=== PATIENT | female | born 1975 | race Caucasian/White ===

== ENCOUNTER 2020-04-07 11:31 | Observation (INO) ==
[2020-04-07] MEDS ORDERED: ONDANSETRON INJ 2 MG/ML 2 ML VIAL IV STA (12:09)
[2020-04-07] MEDS ORDERED: ACETAMINOPHEN 1000 MG/100 ML IV IV STA (12:09)
[2020-04-07] MEDS ORDERED: PROMETHAZINE 6.25 MG/50.25 ML BAG IV STA (12:09)
[2020-04-07] MEDS ORDERED: KETOROLAC TROMETHAMINE 15 MG/ML VIAL IV STA (12:09)
[2020-04-07] MEDS ORDERED: cefTRIAXone SODIUM 1,000 MG/50 ML BAG IV STA (12:09)
[2020-04-07] MEDS ORDERED: SODIUM CHLORIDE 0.9% 1000ML 1,000 ML IV SCH (12:15)
--- NOTE | 2020-04-07 12:25 | Emergency Department Note ---
Impression & Plan Pyelonephritis, Vomiting, Acute dehydration, COVID-19 ED Provider Note NAME: LANETTE MENDOZA AGE: 44 SEX: F : 1975 ARRIVES VIA: Walk-In INFORMANT: [Patient] ED PROVIDER(S): [Paulie Lisa MD] CHIEF COMPLAINT: Flank pain HISTORY OF PRESENT ILLNESS: Patient is a 44-year-old female who states that she has had about 4 days of some urinary burning and frequency. She has had some lower bladder discomfort. The patient states that yesterday, she saw her doctor and was prescribed Macrobid. Patient has taken 1 dose but has vomited ever since taking the Macrobid. She has had chills. She now has flank pain and a headache. Headache is a 10 on a scale of 110. The flank pain is an 8 on a scale 1-10. Basically, the left flank hurts--no right flank pain. She has no history of a kidney stone, no history of kidney infection. She has had UTIs before. She is not concerned for . Patient did speak with her doctor today, she was referred to the ED. Of note, the patient is visiting. She was tested for COVID-19 prior to traveling, she was negative. Patient has had some increased asthma type symptomatology as of late. This is why she was Covid tested before traveling. She states that the cold air typically does flare her asthma. REVIEW OF SYSTEMS: See HPI for pertinent positives and negatives. A total of ten systems were reviewed and were otherwise negative. PMHx/PSHx: See Below SOCIAL HISTORY: See Below. PHYSICAL EXAM: GENERAL: Patient is in moderate distress from pain. HEENT: No acute trauma, normocephalic atraumatic, mucous membranes moist, no nasal congestion, no scleral icterus. NECK: No stridor, no adenopathy, no meningismus, trachea is midline. LUNGS: Clear to auscultation bilaterally, no wheeze, no rhonchi, breath sounds equal. HEART: Without murmurs gallops or rubs, regular rate and rhythm. ABDOMEN: Soft, moderately tender to the lower abdomen/pelvis bilaterally, bowel sounds positive, no hernias, no peritonitis. EXTREMITIES: No cyanosis or edema, full range of motion of all the joints without pain or difficulty, no signs for acute trauma. NEUROLOGIC: Oriented x 3, no acute motor or sensory deficits, no focal weakness. SKIN: No rash, no jaundice, no diaphoresis. Back: No flank discomfort to percussion. DIFFERENTIAL DIAGNOSIS: Renal colic, UTI, pyelonephritis, dehydration, appendicitis, diverticulitis, mesenteric ischemia, aortic pathology, infections, inflammatory bowel disease, PUD, biliary pathology, as well as other pathologies. EMERGENCY DEPARTMENT COURSE/PROCEDURES: ECG: Indication was abdominal pain. The ECG shows what appears to be a sinus rhythm with some junctional escape. The rate is 57. There is no ST elevation, no PVCs. The QTc is 424. Continuous Cardiac Monitoring: An order was placed for continuous cardiac monitoring. The monitor shows a rate of 58 with sinus bradycardia. MEDICAL DECISION MAKING: There is no leukocytosis or concerning anemia. There is no significant electrolyte abnormality or kidney failure. Lactic acid level is not elevated making severe sepsis less likely. No liver enzyme elevation. Procalcitonin level was not elevated. testing was negative. Urinalysis is consistent with infection. Rapid Covid testing returned positive. Renal ultrasound did not show hydronephrosis or any evidence for ureteral calculi. The patient received IV saline 1 L, she was then given 1 L of lactated Ringer's. She then received 500 cc of IV saline. Patient was given IV Zofran, IV Phenergan, IV Toradol. She received IV ceftriaxone and IV Tylenol. Despite the above medications, the patient is still washed out, nauseated and quite fatigued. She feels very weak to stand and almost passed out as per the nursing staff. Patient is in need of a hospital stay. She has pyelonephritis which has failed outpatient treatment. She also is Covid positive. The coronavirus testing was somewhat unexpected as the patient apparently was just tested prior to traveling. I suspect the combination of the kidney infection coupled with the COVID-19 has led to her presentation and complaints. I spoke to the patient and case management. The on-call hospitalist was consulted. Past Med/Surg History Medical History Asthma UTI (urinary tract infection) Social History Smoking Status: Never smoker Preferred Language: Khmer Feels Safe at Home: Yes Allergies Allergies Allergy/AdvReac Type Severity Reaction Status Date / Time No Known Allergies Allergy Unverified 04/07/20 13:39 Home Meds Home Medications Medication Instructions Recorded Confirmed No Known Home Medications 04/07/20 04/07/20 Results & Data (ED) Vital Signs Vital Signs - 24 hr 04/07/20 11:44 04/07/20 12:18 04/07/20 13:14 Temperature 37.7 C H Temperature Source Oral Pulse Rate 82 55 L Pulse Rate [Apical] Pulse Rate from SpO2 Sensor Pulse Rhythm Regular Pulse Strength Normal Respiratory Rate 16 22 Respiratory Effort / Characteristics Non-Labored Respiratory Depth Normal Respiratory Pattern Regular Blood Pressure 109/74 97/62 L Blood Pressure [Left Arm] Blood Pressure Mean 85 72 Blood Pressure Mean [Left Arm] Blood Pressure Position Sitting Pulse Oximetry 99 99 Oxygen Delivery Method Room Air Room Air Sepsis Recent Fever Within 48 Hours No Sepsis New/Unexplained Change in Mental Status N/A Sepsis Action Taken by Nursing No Action Required 04/07/20 13:32 04/07/20 14:24 04/07/20 14:30 Temperature Temperature Source Pulse Rate 65 Pulse Rate [Apical] 56 L 63 Pulse Rate from SpO2 Sensor Pulse Rhythm Pulse Strength Respiratory Rate 18 21 18 Respiratory Effort / Characteristics Respiratory Depth Respiratory Pattern Blood Pressure 94/57 L Blood Pressure [Left Arm] 97/62 L 94/57 L Blood Pressure Mean 63 Blood Pressure Mean [Left Arm] 73 69 Blood Pressure Position Pulse Oximetry 97 98 Oxygen Delivery Method Room Air Room Air Sepsis Recent Fever Within 48 Hours Sepsis New/Unexplained Change in Mental Status Sepsis Action Taken by Nursing 04/07/20 15:21 04/07/20 15:22 04/07/20 15:23 Temperature Temperature Source Pulse Rate 64 60 73 Pulse Rate [Apical] Pulse Rate from SpO2 Sensor 64 61 70 Pulse Rhythm Pulse Strength Respiratory Rate 21 20 17 Respiratory Effort / Characteristics Respiratory Depth Respiratory Pattern Blood Pressure 89/57 L 90/55 L 99/76 L Blood Pressure [Left Arm] Blood Pressure Mean 61 65 88 Blood Pressure Mean [Left Arm] Blood Pressure Position Pulse Oximetry 99 99 100 Oxygen Delivery Method Sepsis Recent Fever Within 48 Hours Sepsis New/Unexplained Change in Mental Status Sepsis Action Taken by Nursing 04/07/20 15:24 04/07/20 16:04 04/07/20 16:05 Temperature Temperature Source Pulse Rate 67 66 78 Pulse Rate [Apical] Pulse Rate from SpO2 Sensor 65 66 76 Pulse Rhythm Pulse Strength Respiratory Rate 16 21 19 Respiratory Effort / Characteristics Respiratory Depth Respiratory Pattern Blood Pressure 96/67 L 87/53 L 76/46 L Blood Pressure [Left Arm] Blood Pressure Mean 77 62 53 Blood Pressure Mean [Left Arm] Blood Pressure Position Pulse Oximetry 99 100 100 Oxygen Delivery Method Sepsis Recent Fever Within 48 Hours Sepsis New/Unexplained Change in Mental Status Sepsis Action Taken by Nursing 04/07/20 16:06 04/07/20 16:30 04/07/20 17:01 Temperature Temperature Source Pulse Rate 70 57 L 58 L Pulse Rate [Apical] Pulse Rate from SpO2 Sensor 69 56 L Pulse Rhythm Pulse Strength Respiratory Rate 21 20 23 Respiratory Effort / Characteristics Respiratory Depth Respiratory Pattern Blood Pressure 107/67 108/75 110/79 Blood Pressure [Left Arm] Blood Pressure Mean 73 80 86 Blood Pressure Mean [Left Arm] Blood Pressure Position Pulse Oximetry 96 99 99 Oxygen Delivery Method Sepsis Recent Fever Within 48 Hours Sepsis New/Unexplained Change in Mental Status Sepsis Action Taken by [facility] Medications Current Medication List: was personally reviewed by me Laboratory Data Attestation: I reviewed the patient's lab results. Result diagrams: 04/07/20 12:31 04/07/20 12:31 Lab Results 04/07/20 04/07/20 04/07/20 Range/Units 12:31 12:31 12:31 WBC 6.43 (4.8-10.8) K/uL RBC 4.66 (4.2-5.4) M/uL Hgb 13.6 (12.0-16.0) g/dL Hct 40.8 (37-47) % MCV 87.6 (80-100) fL MCH 29.2 (25-34) pg MCHC 33.3 (32-36) g/dL RDW Std Deviation 40.0 (36.4-46.3) fL RDW Coeff of Audi 12.6 (11.5-14.5) % Plt Count 223 (130-400) K/uL MPV 9.2 (7.4-10.4) fL Immature Gran % (Auto) 0.2 % Neut % (Auto) 81.9 % Lymph % (Auto) 7.9 % [place] % (Auto) 9.2 % Eos % (Auto) 0.5 % Baso % (Auto) 0.3 % Neut # (Auto) 5.27 (1.4-6.5) K/uL Lymph # (Auto) 0.51 L (1.2-3.4) K/uL [place] # (Auto) 0.59 (0.11-0.59) K/uL Eos # (Auto) 0.03 (0-0.5) K/uL Baso # (Auto) 0.02 (0-0.2) K/uL Immature Gran # (Auto) 0.01 (0.00-0.02) K/uL Sodium 137 (136-145) mmol/L Potassium 3.6 (3.5-5.1) mmol/L Chloride 105 (98-107) mmol/L Carbon Dioxide 26 (21-32) mmol/L Anion Gap 6.0 (3-11) BUN 10 (7-18) mg/dl Creatinine 0.94 (0.6-1.2) mg/dl Est Cr Clr Drug Dosing 67.3 ml/min Est GFR ( Amer) 84.3 Est GFR (Non-Af Amer) 72.8 BUN/Creatinine Ratio 10.5 (10-20) Glucose 90 (70-99) mg/dl Lactate 1.5 (0.4-2.0) mmol/L Calcium 8.5 (8.5-10.1) mg/dl Magnesium 2.4 (1.8-2.4) mg/dl Total Bilirubin 0.8 (0.2-1) mg/dl AST 11 L (15-37) U/L ALT 15 (12-78) U/L Alkaline Phosphatase 50 (45-117) U/L Total Protein 7.8 (6.4-8.2) gm/dl Albumin 4.0 (3.4-5.0) gm/dl Globulin 3.8 (2.5-4.0) gm/dl Albumin/Globulin Ratio 1.1 (0.9-2) Procalcitonin (0-0.5) ng/ml HCG, Qual (Negative) Urine Color Urine Appearance (Clear) Urine pH (4.5-7.5) Ur Specific [place] (1.000-1.030) Urine Protein (Negative) Urine Glucose (UA) (Negative) Urine Ketones (Negative) Urine Blood (Negative) Urine Nitrite (Negative) Urine Bilirubin (Negative) Urine Urobilinogen (Negative) Ur Leukocyte Esterase (Negative) Urine WBC (Auto) (0-5) /hpf Urine RBC (Auto) (0-4) /hpf U Hyaline Cast (Auto) (0-5) /lpf U Epithel Cells (Auto) (0-5) /lpf Urine Bacteria (Auto) (Negative) Ur Renal Epithelial Cell Urine Mucus (None Prsent) 04/07/20 04/07/20 Range/Units 12:31 12:41 WBC (4.8-10.8) K/uL RBC (4.2-5.4) M/uL Hgb (12.0-16.0) g/dL Hct (37-47) % MCV (80-100) fL MCH (25-34) pg MCHC (32-36) g/dL RDW Std Deviation (36.4-46.3) fL RDW Coeff of Audi (11.5-14.5) % Plt Count (130-400) K/uL MPV (7.4-10.4) fL Immature Gran % (Auto) % Neut % (Auto) % Lymph % (Auto) % [place] % (Auto) % Eos % (Auto) % Baso % (Auto) % Neut # (Auto) (1.4-6.5) K/uL Lymph # (Auto) (1.2-3.4) K/uL [place] # (Auto) (0.11-0.59) K/uL Eos # (Auto) (0-0.5) K/uL Baso # (Auto) (0-0.2) K/uL Immature Gran # (Auto) (0.00-0.02) K/uL Sodium (136-145) mmol/L Potassium (3.5-5.1) mmol/L Chloride (98-107) mmol/L Carbon Dioxide (21-32) mmol/L Anion Gap (3-11) BUN (7-18) mg/dl Creatinine (0.6-1.2) mg/dl Est Cr Clr Drug Dosing ml/min Est GFR ( Amer) Est GFR (Non-Af Amer) BUN/Creatinine Ratio (10-20) Glucose (70-99) mg/dl Lactate (0.4-2.0) mmol/L Calcium (8.5-10.1) mg/dl Magnesium (1.8-2.4) mg/dl Total Bilirubin (0.2-1) mg/dl AST (15-37) U/L ALT (12-78) U/L Alkaline Phosphatase (45-117) U/L Total Protein (6.4-8.2) gm/dl Albumin (3.4-5.0) gm/dl Globulin (2.5-4.0) gm/dl Albumin/Globulin Ratio (0.9-2) Procalcitonin 0.07 (0-0.5) ng/ml HCG, Qual Negative (Negative) Urine Color Dark Yellow Urine Appearance Clear (Clear) Urine pH 5.5 (4.5-7.5) Ur Specific [place] 1.027 (1.000-1.030) Urine Protein 2+ H (Negative) Urine Glucose (UA) Negative (Negative) Urine Ketones 1+ H (Negative) Urine Blood 2+ H (Negative) Urine Nitrite Positive A (Negative) Urine Bilirubin Negative (Negative) Urine Urobilinogen Negative (Negative) Ur Leukocyte Esterase Trace H (Negative) Urine WBC (Auto) 10-30 H (0-5) /hpf Urine RBC (Auto) 5-10 H (0-4) /hpf U Hyaline Cast (Auto) 10-30 H (0-5) /lpf U Epithel Cells (Auto) >30 H (0-5) /lpf Urine Bacteria (Auto) Negative (Negative) Ur Renal Epithelial Cell Not Reportable Urine Mucus Present A (None Prsent) Administered Medications Discontinued Medications Acetaminophen (Acetaminophen 1000 Mg/100 Ml Iv) 1,000 mg IV NOW STA Stop: 04/07/20 12:10 Last Admin: 04/07/20 13:05 Dose: 1,000 mg Documented by: [id number] Sodium Chloride (Nss 1000ml) 1,000 mls @ 999 mls/hr IV .Q1H1M LUIS Stop: 04/07/20 13:15 Last Infusion: 04/07/20 13:56 Dose: 0 mls/hr Documented by: [id number] Admin: 04/07/20 12:52 Dose: 999 mls/hr Documented by: [id number] Ceftriaxone Sodium (Rocephin) 1,000 mg in 50 mls @ 100 mls/hr IV NOW STA Stop: 04/07/20 12:38 Last Infusion: 04/07/20 13:36 Dose: 0 mls/hr Documented by: [id number] Admin: 04/07/20 13:06 Dose: 100 mls/hr Documented by: [id number] Promethazine HCl (Phenergan) 6.25 mg in 50.25 mls @ 201 mls/hr IV NOW STA Stop: 04/07/20 12:23 Last Infusion: 04/07/20 13:23 Dose: 0 mls/hr Documented by: [id number] Admin: 04/07/20 13:06 Dose: 201 mls/hr Documented by: [id number] Lactated Ringer's (Lr) 1,000 mls @ 999 mls/hr IV .Q1H1M STA Stop: 04/07/20 15:12 Last Infusion: 04/07/20 15:45 Dose: 0 mls/hr Documented by: [id number] Admin: 04/07/20 14:30 Dose: 999 mls/hr Documented by: [id number] Sodium Chloride (Nss 1000ml) 500 mls @ 999 mls/hr IV .Q31M ONE Stop: 04/07/20 16:28 Last Infusion: 04/07/20 16:59 Dose: 0 mls/hr Documented by: [id number] Admin: 04/07/20 16:15 Dose: 999 mls/hr Documented by: [id number] Ketorolac Tromethamine (Ketorolac Tromethamine 15 Mg/Ml Vial) 15 mg IV NOW STA Stop: 04/07/20 12:10 Last Admin: 04/07/20 13:06 Dose: Not Given Documented by: [id number] Ketorolac Tromethamine (Ketorolac 30 Mg/Ml Vial) Confirm Administered Dose 30 mg .ROUTE .STK-MED ONE Stop: 04/07/20 13:01 Last Admin: 04/07/20 13:06 Dose: 15 mg Documented by: [id number] Ondansetron HCl (Ondansetron Inj 2 Mg/Ml 2 Ml Vial) 4 mg IV NOW STA Stop: 04/07/20 12:10 Last Admin: 04/07/20 13:06 Dose: 4 mg Documented by: [id number] Imaging Data Radiologist's Impression: ULTRASOUND KIDNEYS AND BLADDER CLINICAL HISTORY: Left flank pain. COMPARISON STUDY: No priors. TECHNIQUE: Real-time, grayscale, and color flow sonography of the kidneys and bladder is performed. Images are reviewed in the transverse and longitudinal planes. FINDINGS: Kidneys: The kidneys are normal in size and echotexture. The right kidney measures 9.5 x 4.7 x 4.3 cm and the left kidney measures 12.7 x 5.5 x 4.0 cm. There is no hydronephrosis. No shadowing renal calculi are identified. There is no sonographic evidence of contour deforming renal mass lesion. No perinephric fluid is identified. Bladder: The bladder is decompressed and grossly unremarkable. Bilateral ureteral jets were seen. IMPRESSION: Unremarkable sonographic assessment of the kidneys and bladder. Discharge Plan Visit Data Chief Complaint: Flank Pain Stated Complaint: URINARY SYMPTOMS, FLANK PAIN ED Provider: Paulie Lisa Discharge Problem: Pyelonephritis, Vomiting, Acute dehydration, COVID-19 Patient Disposition: Admitted As Inpatient Condition: Fair Forms Stand Alone Forms: [facility] Prescriptions Prescriptions: No Action No Known Home Medications RF: 0 Referrals Referrals: PCP,NO [Primary Care Provider] - Discharge Problem: Vomiting Qualifiers: Vomiting type: unspecified Vomiting Intractability: non-intractable Nausea presence: with nausea Qualified Code(s): R11.2 - Nausea with vomiting, unspecified
[2020-04-07 12:49] LABS: Basophils # (auto) 0.02 K/uL (0-0.2); Basophils % (auto) 0.3 %; Eosinophils # (auto) 0.03 K/uL (0-0.5); Eosinophils % (auto) 0.5 %; Hematocrit (blood only) 40.8 % (37-47); Hemoglobin 13.6 g/dL (12.0-16.0); Immature Granulocytes # (auto) 0.01 K/uL (0.00-0.02); Immature Granulocytes % (auto) 0.2 %; Lymphocytes # (auto) 0.51 K/uL (1.2-3.4); Lymphocytes % (auto) 7.9 %; Mean Corpuscular Hemoglobin 29.2 pg (25-34); Mean Corpuscular Hgb Conc 33.3 g/dL (32-36); Mean Corpuscular Volume 87.6 fL (80-100); Mean Platelet Volume 9.2 fL (7.4-10.4); Monocytes # (auto) 0.59 K/uL (0.11-0.59); Monocytes % (auto) 9.2 %; Neutrophils # (auto) 5.27 K/uL (1.4-6.5); Neutrophils % (auto) 81.9 %; Platelet Count 223 K/uL (130-400); RDW Coefficient of Variation 12.6 % (11.5-14.5); Red Blood Count 4.66 M/uL (4.2-5.4); White Blood Count 6.43 K/uL (4.8-10.8)
[2020-04-07] MEDS ORDERED: KETOROLAC 30 MG/ML VIAL ONE (13:00)
[2020-04-07 13:02] LABS: Appearance Urine Clear (Clear); Bacteria Urine Automated Negative (Negative); Blood Urine 2+ (Negative); Color Urine Dark Yellow; Epithelial Cell Urine Auto >30 /lpf (0-5); Glucose Urine UA Negative (Negative); Ketones Urine 1+ (Negative); Leukocyte Esterase Urine Trace (Negative); Nitrite Urine Positive (Negative); Protein Urine 2+ (Negative); Specific Gravity Urine 1.027 (1.000-1.030); Urobilinogen Urine Negative (Negative); pH Urine 5.5 (4.5-7.5)
[2020-04-07 13:05] LABS: Bilirubin Urine Negative (Negative); Ictotest Urine Negative (Negative)
[2020-04-07 13:08] LABS: BUN Creatinine Ratio 10.5 (10-20); Calcium 8.5 mg/dl (8.5-10.1); Creatinine Clr Calc Pharmacy 67.3 ml/min; Est GFR (African American) 84.3; Est GFR (Non-African American) 72.8; Magnesium 2.4 mg/dl (1.8-2.4); Potassium 3.6 mmol/L (3.5-5.1)
[2020-04-07 13:11] LABS: Albumin Globulin Ratio 1.1 (0.9-2); Bilirubin,Total 0.8 mg/dl (0.2-1); Globulin 3.8 gm/dl (2.5-4.0); Total Protein 7.8 gm/dl (6.4-8.2)
[2020-04-07 13:16] LABS: Pregnancy Test, Serum Negative (Negative)
[2020-04-07 13:23] LABS: Mucus Urine Present (None Prsent)
[2020-04-07 13:33] LABS: Procalcitonin 0.07 ng/ml (0-0.5)
--- NOTE | 2020-04-07 13:52 | Ultrasound Report ---
ULTRASOUND KIDNEYS AND BLADDER CLINICAL HISTORY: Left flank pain. COMPARISON STUDY: No priors. TECHNIQUE: Real-time, grayscale, and color flow sonography of the kidneys and bladder is performed. I mages are reviewed in the transverse and longitudinal planes. FINDINGS: Kidneys: The kidneys are normal in size and echotexture. The right kidney measures 9.5 x 4.7 x 4.3 cm and the left kidney measures 12.7 x 5.5 x 4.0 cm. There is no hydronephrosis. No shadowing renal ca lculi are identified. There is no sonographic evidence of contour deforming renal mass lesion. No per inephric fluid is identified. Bladder: The bladder is decompressed and grossly unremarkable. Bilateral ureteral jets were seen. IMPRESSION: Unremarkable sonographic assessment of the kidneys and bladder. ACT 112: Negative or not required by law. Electronically signed by: Paulie Reddy M.D. 04/07/2020 1:50 PM
[2020-04-07] MEDS ORDERED: LACTATED RINGER'S 1,000 ML IV STA (14:12)
[2020-04-07] MEDS ORDERED: SODIUM CHLORIDE 0.9% 1000ML 500 ML IV ONE (15:58)
--- NOTE | 2020-04-07 18:31 | History & Physical Report ---
Date of Service April 07, 2020 Assessment & Plan (1) Pyelonephritis: By UA and clinical symptoms. Renal u/s on 04/07 w/o abscess or overt signs of infection. - Continue ceftriaxone - Follow urine and blood cultures (2) COVID-19: Incidental finding on admission testing. Unclear who she caught it from. She tested negative on 04/05/2020, so presumably she is at the very beginning of her - Isolation precautions - Breathing comfortably on room air with no present subjective shortness of breath. SpO2 is 100%. Hold dexamethasone, remdesivir, & plasma. (3) Asthma: Had some shortness of breath on Saturday, but presently none. - Continue home Advair - DuoNebs PRN (4) DVT prophylaxis: SCDs - Low DVT risk per admission calculator History of Present Illness Primary Care Provider: NO PCP 44yo F w/ hx of asthma who presents for presumed pyelonephritis. Reports several days of dysuria and back pain and lower abdominal pain. She reported to her PCP on Saturday and was prescribed Bactrim, but she has felt sicker and threw up at least one dose and presented to the Emergency Department. She also noted shortness of breath at her PCP's office along with some chest pain. She was tested for Covid there and found to be negative. Here she is slightly febrile. She denies present shortness of breath. Allergies Allergy/AdvReac Type Severity Reaction Status Date / Time No Known Allergies Allergy Unverified 04/07/20 13:39 Home Medications Medication Instructions Recorded Confirmed Type Advair Diskus 1 inh INHALATION BID 04/07/20 04/07/20 History albuterol sulfate 2 puff INHALATION Q4H PRN 04/07/20 04/07/20 History Past Med/Surg History Medical History Asthma UTI (urinary tract infection) Family History Grandmother Diabetes Social History Smoking Status: Never smoker Hx Alcohol Use: Yes Alcohol Intake Frequency: 2-4 x/Month Preferred Language: Swedish Feels Safe at Home: Yes Review of Systems Review of Systems: All systems reviewed & are unremarkable except as noted in HPI & below Physical Exam Constitutional: WD/WN, vitals as above Eyes: EOM intact bilaterally; no conjunctival abnormality ENMT: external ear and nose normal, oropharynx normal Neck: trachea midline, no thyromegaly normal visual inspection Respiratory: normal respiratory effort, lungs clear to auscultation no respiratory distress Cardiovascular: RRR, no murmur, no edema Gastrointestinal (Abdomen): Inspection/Auscultation: abdomen normal to inspection; abdomen not distended Musculoskeletal: no cyanosis or clubbing, extremities motor strength 5/5 Skin: no rashes, warm and dry Neurologic: moves all extremities and awake Psychiatric: Orientation: alert, oriented to person and cooperative Genitourinary: + CVA tenderness (Mild, bilateral) Results & Data Results & Data ([facility]) Vital Signs (Past 12 Hours) Vital Signs Temp Pulse Pulse Resp BP BP Pulse Ox 04/07/20 17:30 50 L 16 108/70 100 04/07/20 17:01 58 L 23 110/79 99 04/07/20 16:30 57 L 20 108/75 99 04/07/20 16:06 70 21 107/67 96 04/07/20 16:05 78 19 76/46 L 100 04/07/20 16:04 66 21 87/53 L 100 04/07/20 15:24 67 16 96/67 L 99 04/07/20 15:23 73 17 99/76 L 100 04/07/20 15:22 60 20 90/55 L 99 04/07/20 15:21 64 21 89/57 L 99 04/07/20 14:30 63 18 94/57 L 98 04/07/20 14:24 65 21 94/57 L 04/07/20 13:32 56 L 18 97/62 L 97 04/07/20 13:14 55 L 22 97/62 L 04/07/20 12:18 99 04/07/20 11:44 37.7 C H 82 16 109/74 99 PG Care Time/CCT Total # of Minutes Spent Total Time Spent with Patient: Total time spent is greater than 50% in coordination of care (as documented) at patient's floor/unit and/or counseling patient: Coding Level of Care Code 82843 OBS Care - Level 3 Diagnoses Pyelonephritis N12 COVID-19 U07.1 Asthma J45.909 DVT prophylaxis Z29.9
[2020-04-07] MEDS ORDERED: ONDANSETRON INJ 2 MG/ML 2 ML VIAL IV PRN (19:23)
[2020-04-07] MEDS ORDERED: KETOROLAC TROMETHAMINE 15 MG/ML VIAL IV PRN (19:23)
[2020-04-07] MEDS ORDERED: NORMOSOL-R 1,000 ML IV ONE (19:23)
[2020-04-07] MEDS: ACETAMINOPHEN 325 MG TAB PO PRN (22:47)
[2020-04-07] MEDS: ALBUT/IPRATROP 3MG/0.5MG NEB 3 ML VIAL NEB PRN (23:58)
[2020-04-08] MEDS ORDERED: KETOROLAC TROMETHAMINE 15 MG/ML VIAL IV ONE (01:30)
[2020-04-08 06:55] LABS: Hematocrit (blood only) 33.7 % (37-47); Hemoglobin 11.2 g/dL (12.0-16.0); Mean Corpuscular Hemoglobin 29.5 pg (25-34); Mean Corpuscular Hgb Conc 33.2 g/dL (32-36); Mean Corpuscular Volume 88.7 fL (80-100); Mean Platelet Volume 9.4 fL (7.4-10.4); Platelet Count 175 K/uL (130-400); RDW Coefficient of Variation 12.7 % (11.5-14.5); RDW Standard Deviation 40.7 fL (36.4-46.3); White Blood Count 2.72 K/uL (4.8-10.8)
[2020-04-08 07:40] LABS: BUN Creatinine Ratio 14.6 (10-20); Calcium 7.5 mg/dl (8.5-10.1); Creatinine Clr Calc Pharmacy 96.3 ml/min; Est GFR (African American) 118.4; Est GFR (Non-African American) 102.1; Magnesium 2.4 mg/dl (1.8-2.4); Potassium 3.5 mmol/L (3.5-5.1)
[2020-04-08] MEDS: FLUTICASONE/VILANTEROL 200/25MCG 14 PUFFS/INHALER INH SCH (09:33)
--- NOTE | 2020-04-08 09:47 | Electrocardiogram Report ---
Test Reason : Blood Pressure : / mmHG Vent. Rate : 057 BPM Atrial Rate : 052 BPM P-R Int : 000 ms QRS Dur : 080 ms QT Int : 436 ms P-R-T Axes : 000 058 040 degrees QTc Int : 424 ms Normal sinus rhythm with Isorhythmic AV dissociation with a competing Junctional rhythm Abnormal ECG but can be seen in well trained athletes with high vagal tone No previous ECGs available Confirmed by Isac Saenz ([id number]) on 04/08/2020 9:46:41 AM Referred By: REFERRED SELF Confirmed By:Isac Saenz
[2020-04-08] MEDS ORDERED: SUMAtriptan succinate 100 MG TAB PO ONE (11:45)
[2020-04-08] MEDS: cefTRIAXone SODIUM 1,000 MG in DEXTROSE 5% 50 ML IV SCH (11:47)
--- NOTE | 2020-04-08 13:33 | Hospitalist Progress Note ---
Date of Service April 08, 2020 Assessment & Plan (1) Pyelonephritis: By UA and clinical symptoms. Renal u/s on 04/07 w/o abscess or overt signs of infection. - Continue ceftriaxone - Follow urine and blood cultures - Urine with pinpoint growth at present. (2) Migraine: Ongoing since admission. - No major improvement with Tylenol & ketorolac - Trial sumatriptan; if no improvement, will use IV meds (3) COVID-19: Incidental finding on admission testing. Unclear who she caught it from. She tested negative on 04/05/2020, so presumably she is at the very beginning of her - Isolation precautions - Breathing comfortably on room air with no present subjective shortness of breath. SpO2 is 100%. Hold dexamethasone, remdesivir, & plasma. (4) Asthma: Had some shortness of breath on Saturday, but presently none. - Continue home Advair (Bre[facility] for formulary) - DuoNebs PRN (5) DVT prophylaxis: SCDs - Low DVT risk per admission calculator Admission and Anticipated Discharge Date Admission Date: April 07, 2020 Subjective 9/10 headache. Less nausea. No dysuria. Reports no fevers/chills, chest pain, shortness of breath, abdominal pain, or vomiting. Physical Exam Constitutional: WD/WN, vitals as above Eyes: EOM intact bilaterally; no conjunctival abnormality ENMT: external ear and nose normal, oropharynx normal Neck: trachea midline, no thyromegaly normal visual inspection Respiratory: normal respiratory effort, lungs clear to auscultation no respiratory distress Cardiovascular: RRR, no murmur, no edema Gastrointestinal (Abdomen): Inspection/Auscultation: abdomen normal to inspection; abdomen not distended Musculoskeletal: no cyanosis or clubbing, extremities motor strength 5/5 Skin: no rashes, warm and dry Neurologic: moves all extremities and awake Psychiatric: Orientation: alert, oriented to person and cooperative Results & Data Results & Data ([facility]) Vital Signs (Past 12 Hours) Vital Signs Temp Pulse Resp BP Pulse Ox 04/08/20 08:09 36.8 C 60 14 120/82 99 PG Care Time/CCT Total # of Minutes Spent Total Time Spent with Patient: Total time spent is greater than 50% in coordination of care (as documented) at patient's floor/unit and/or counseling patient: Coding Level of Care Code 76525 Subseq Obs Care Lvl 3 Diagnoses Pyelonephritis N12 Migraine G43.909 COVID-19 U07.1 Asthma J45.909 DVT prophylaxis Z29.9
[2020-04-08] MEDS ORDERED: POLYETHYLENE (MIRALAX) 17 GM PACK ONE (14:34)
[2020-04-08] MEDS: POLYETHYLENE (MIRALAX) 17 GM PACK PO SCH (14:49)
[2020-04-08] MEDS: ALBUT/IPRATROP 3MG/0.5MG NEB 3 ML VIAL NEB PRN (16:20)
[2020-04-08] MEDS: ACETAMINOPHEN 325 MG TAB PO PRN (23:44)
[2020-04-09 07:23] VITALS: BP 115/75; TEMP 98.1; O2SAT 97
[2020-04-09] MEDS: FLUTICASONE/VILANTEROL 200/25MCG 14 PUFFS/INHALER INH SCH (08:18)
[2020-04-09] MEDS: POLYETHYLENE (MIRALAX) 17 GM PACK PO SCH (08:18)
[2020-04-09] MEDS: ACETAMINOPHEN 325 MG TAB PO PRN (08:20)
[2020-04-09] MEDS ORDERED: SUMAtriptan succinate 100 MG TAB PO STA (09:31)
[2020-04-09] MEDS: cefTRIAXone SODIUM 1,000 MG in DEXTROSE 5% 50 ML IV SCH (11:06)
[2020-04-09 11:30] VITALS: PULSE 63
--- NOTE | 2020-04-09 18:49 | Discharge Summary ---
Date of Service April 09, 2020 Admission HPI Per Admitting Provider 44yo F w/ hx of asthma who presents for presumed pyelonephritis. Reports several days of dysuria and back pain and lower abdominal pain. She reported to her PCP on Saturday and was prescribed Bactrim, but she has felt sicker and threw up at least one dose and presented to the Emergency Department. She also noted shortness of breath at her PCP's office along with some chest pain. She was tested for Covid there and found to be negative. Here she is slightly febrile. She denies present shortness of breath. Principal Diagnosis Presumed pyelonephritis Discharge Exam Constitutional WD/WN, vitals as above Eyes EOM intact bilaterally; no conjunctival abnormality ENMT external ear and nose normal, oropharynx normal Neck trachea midline, no thyromegaly normal visual inspection Respiratory normal respiratory effort, lungs clear to auscultation no respiratory distress Cardiovascular RRR, no murmur, no edema Gastrointestinal (Abdomen) Inspection/Auscultation: abdomen normal to inspection; abdomen not distended Musculoskeletal no cyanosis or clubbing, extremities motor strength 5/5 Skin no rashes, warm and dry Neurologic moves all extremities and awake Psychiatric Orientation: alert, oriented to person and cooperative Genitourinary no CVA tenderness Discharge Data Allergies Allergy/AdvReac Type Severity Reaction Status Date / Time No Known Allergies Allergy Unverified 04/07/20 13:39 Consultations 04/07/20 16:04 ED Decision to Admit Stat Ordered Studies 04/07/20 12:09 US renal/blad retro comp Stat Hospital Course (1) Pyelonephritis: By UA and clinical symptoms. Renal u/s on 04/07 w/o abscess or overt signs of infection. - Continued ceftriaxone while inpatient. - Follow urine and blood cultures - Urine with multiple bugs. Empirically treat with Cipro given it has great coverage and penetration. Blood cultures negative x 48 hours. (2) Migraine: Ongoing since admission. - No major improvement with Tylenol & ketorolac - Trialed sumatriptan and worked really well. Discharged on course. (3) COVID-19: Incidental finding on admission testing. Unclear who she caught it from. She tested negative on 04/05/2020, so presumably she is at the very beginning of her - Isolation precautions - Breathing comfortably on room air with no present subjective shortness of breath. SpO2 is 100%. Hold dexamethasone, remdesivir, & plasma. (4) Asthma: Had some shortness of breath on Saturday, but presently none. - Continue home Advair ([facility] for formulary) - DuoNebs PRN (5) DVT prophylaxis: SCDs - Low DVT risk per admission calculator Total Time Total Time Spent Total Time Spent (In Minutes): 35 Discharge Plan Discharge Items Patient Disposition: Home - Self-Care Reason For Visit: PYELONPHRITIS Discharge Diagnosis: Likely pyelonephritis Incidental Covid-19 infection Condition on Discharge: Good Activity: Resume your previous activity Non-emergency contact: Primary Care Provider Call non-emergency contact if: your symptoms worsen and your temperature is above 101 Follow-up/Referrals: PCP,NO [Primary Care Provider] - Diet: Regular Addtl Attending Provider Instructions: You were admitted with concern for a UTI that had gone up to the kidney (called pyelonephritis). We also incidentally found that you had Covid-19. So far, you have luckily been asymptomatic from this without any shortness of breath or low oxygen levels or even cold-type symptoms! This is great, and I hope that you continue to have no issues with this. For your UTI, we are prescribing 5 more days of antibiotics. You will take your first dose tomorrow morning (04/10/2020). We are also sending scripts for Imitrex for migraine and Zofran for nausea as the UTI/pyelonephritis and/or Covid have been giving you migraine headaches. You can take up to 2 doses in a day. If you are needing both doses for several days in a row, please contact your PCP to discuss alternative treatments. Pending Studies at Discharge: No Stand-Alone Forms: My [employer], Smoking Cessation Medications and DC Order Prescriptions: New ciprofloxacin HCl 500 mg tablet 500 mg PO BID Qty: 10 RF: 0 sumatriptan succinate [Imitrex] 50 mg tablet See Rx Instructions .ROUTE .COMPLEX Qty: 20 RF: 0 ondansetron HCl [Zofran] 4 mg tablet 4 mg PO TID PRN (Reason: nausea and vomiting) 5 Days Qty: 30 RF: 0 Continued Advair Diskus 250 mcg 1 inh inhalation BID RF: 0 albuterol sulfate 90 mcg 2 puff inhalation Q4H PRN (Reason: Shortness Of Breath Or Wheezing) RF: 0 Discharge Orders: Discharge Order (Routine); Ordered 04/09/20 Ordered By: Nick Eli Admission Data Admit Date/Time: 04/07/20 18:00 Attending Provider: Nick Eli Admit Provider: Nick Eli Primary Care Provider: PCP,NO Other Providers: Dwight Peres Other Interventions: Discharge Summary Assessment (RN) Last Done: 04/09/20 11:28 Coding Level of Care Code 62083 OBS Care - Discharge Diagnoses Pyelonephritis N12 Migraine G43.909 COVID-19 U07.1 Asthma J45.909 DVT prophylaxis Z29.9
== END 2020-04-09 13:31 | disposition home or self-care (01) ==
LOC: 3E 11:31 → ED 11:31 → 3E 18:46